=== PATIENT | female | born 1980 | race Caucasian/White ===

== ENCOUNTER 2018-03-31 18:06 | Emergency (ER) | payer OTHER ==
--- NOTE | 2018-03-31 18:09 | EDPHY ---
H & P Source: Patient Exam Limitations: No limitations - Personal History Tetanus Vaccine Date: 2008 - Medical/Surgical History Hx Asthma: No Hx Chronic Respiratory Disease: No Hx Diabetes: No Hx Cardiac Disease: No Hx Renal Disease: No Hx Cirrhosis: No Hx Alcoholism: No Hx HIV/AIDS: No Hx Splenectomy or Spleen Trauma: No Other PMH: Depression - Social History Smoking Status: Never smoked Time Seen by Provider: 03/31/18 18:08 HPI/ROS: CHIEF COMPLAINT: Fever, abdominal pain HISTORY OF PRESENT ILLNESS: The patient is referred to the emergency department for a CT scan. She has had 3 weeks of fever and migratory abdominal pain. The patient has had a total of 3 negative urine test but was placed on Bactrim for possible cystitis. Patient denies any recent travel outside the [place]. She denies any history of surgery or dental procedures. The patient takes no regular medications. The patient had an ultrasound performed of her abdomen earlier today which demonstrated no evidence of a tubo-ovarian abscess. They are unable to visualize the appendix. REVIEW OF SYSTEMS: A comprehensive 10 point review of systems is otherwise negative aside from elements mentioned in the history of present illness. (Albert Key) - Physical Exam Exam: General Appearance: Alert, no distress Eyes: Pupils equal and round no pallor or injection ENT, Mouth: Mucous membranes moist Respiratory: There are no retractions, lungs are clear to auscultation Cardiovascular: Regular rate and rhythm Gastrointestinal: Diffuse generalized abdominal tenderness, some rebound and guarding in the right lower quadrant and right upper quadrant Neurological: A&O, normal motor function, normal sensory exam, normal cranial nerves Skin: Warm and dry, no rashes Musculoskeletal: Neck is supple nontender Extremities: symmetrical, full range of motion (Albert Key) Constitutional: Initial Vital Signs Temperature (C) 38.1 C 03/31/18 18:08 Heart Rate 100 03/31/18 18:08 Respiratory Rate 17 03/31/18 18:08 Blood Pressure 124/64 H 03/31/18 18:08 O2 Sat (%) 97 03/31/18 18:08 O2 Delivery Mode Room Air Allergies/Adverse Reactions: No Known Allergies Allergy (Verified 03/31/18 18:07) Home Medications: Medication Instructions Recorded Bactrim DS 03/31/18 Medical Decision Making - Diagnostics Imaging Results: Imaging Impressions Pelvic/Renal Ultrasound 03/31/18 16:30 Impression: 1. No acute findings in the pelvis. 2. Benign 1.4 cm left paraovarian cyst. Findings discussed with Darrius Orellana, plant production worker for [employer] 03/31/2018 at 17 :47. Abdomen Ultrasound 03/31/18 17:00 Impression: Nonvisualization of the appendix with no secondary evidence of appendicitis. Findings discussed with Darrius Orellana, plant production worker for [employer] 03/31/2018 at 17 :47. Abdomen CT 03/31/18 19:11 Impression: 1. Minimal prominence of the tip of the appendix, indeterminate for acute appendicitis. 2. Moderate stool in the proximal colon. 3. 4.3 cm hepatic hemangioma. 4. Additional findings, as above. Findings discussed with Albert Key M.D., on March 31, 2018 at 2020. ED Course/Re-evaluation: I reviewed the patient's past medical records. She presents emergency department with several weeks of ongoing abdominal pain and fever. Patient's workup today his been unrevealing. She had a reassuring sed rate, multiple negative urine cultures and a unremarkable ultrasound. The patient was sent to the ED by her primary care provider for a CT scan to evaluate for possible subacute appendicitis. Additional laboratory testing was done in the emergency department including blood cultures x2. Patient's metabolic panel does demonstrate a slightly low sodium otherwise it is unremarkable. The patient's lipase continues to be normal. She does have leukopenia. I have added on an Ebstein Chase virus panel for evaluation of the patient's symptoms. The patient did undergo a CT scan of the abdomen pelvis for further evaluation. CT scan of the abdomen pelvis does demonstrate a mild dilation of the appendiceal tip to 9 mm with questionable mild periappendiceal stranding. No additional intra-abdominal pathology is noted. Reviewing the patient's lab she has developed a leukopenia. I re-evaluated the patient at 8:40 p.m.. She does have reproducible tenderness the right lower quadrant. Patient's workup is indeterminate at this point time for appendicitis. I have requested surgical consultation by Dr. Feliciano Jain to see if his recommendation is expected management verses admission for surgical intervention. The patient will be turned over to Dr. Adames pending Dr. Jain evaluation. Disposition per Dr. Jain. (Albert Key) 10:30 p.m.- The patient was seen by Dr. Jain who does not believe the patient truly as appendicitis. He would like her to be discharged home with follow up with her primary care doctor. Monospot was negative, remainder of the BV testing is pending at this time. I discussed this with the patient. I have answered all of her questions. She will be discharged home. (Hilaria Oliva) Differential Diagnosis: Differential diagnosis considered includes appendicitis, mesenteric adenitis, hepatitis, viral syndrome, bacteremia (Albert Key) - Data Points Laboratory Results: Laboratory Results 03/31/18 18:35 03/31/18 18:35 03/31/18 03/31/18 03/31/18 18:35 18:35 18:35 WBC RBC Hgb Hct MCV MCH MCHC RDW Plt Count MPV Neut % (Auto) Lymph % (Auto) [place] % (Auto) Eos % (Auto) Baso % (Auto) Nucleat RBC Rel Count Absolute Neuts (auto) Absolute Lymphs (auto) Absolute Monos (auto) Absolute Eos (auto) Absolute Basos (auto) Absolute Nucleated RBC Immature Gran % Immature Gran # RBC/WBC/PLT Morphology Platelet Estimate Sodium Potassium Chloride Carbon Dioxide Anion Gap BUN Creatinine Estimated GFR Glucose Calcium Total Bilirubin Conjugated Bilirubin Unconjugated Bilirubin AST ALT Alkaline Phosphatase Total Protein Albumin Lipase Beta HCG, Qual NEGATIVE EBV Capsid Ag IgG Ab Pending EBV Capsid Ag IgM Ab Pending EBV Nuclear Antigen Ab Pending EBV Interpretation Pending Monoscreen NEGATIVE (NEGATIVE) 03/31/18 03/31/18 18:35 18:35 WBC 2.97 10^3/uL L 10^3/uL (3.80-9.50) RBC 4.01 10^6/uL L 10^6/uL (4.18-5.33) Hgb 12.5 g/dL L g/dL (12.6-16.3) Hct 37.1 % L % (38.0-47.0) MCV 92.5 fL fL (81.5-99.8) MCH 31.2 pg pg (27.9-34.1) MCHC 33.7 g/dL g/dL (32.4-36.7) RDW 12.2 % % (11.5-15.2) Plt Count 177 10^3/uL 10^3/uL (150-400) MPV 9.6 fL fL (8.7-11.7) Neut % (Auto) 64.4 % % (39.3-74.2) Lymph % (Auto) 12.8 % L % (15.0-45.0) [place] % (Auto) 20.9 % H % (4.5-13.0) Eos % (Auto) 1.3 % % (0.6-7.6) Baso % (Auto) 0.3 % % (0.3-1.7) Nucleat RBC Rel Count 0.0 % % (0.0-0.2) Absolute Neuts (auto) 1.91 10^3/uL 10^3/uL (1.70-6.50) Absolute Lymphs (auto) 0.38 10^3/uL L 10^3/uL (1.00-3.00) Absolute Monos (auto) 0.62 10^3/uL 10^3/uL (0.30-0.80) Absolute Eos (auto) 0.04 10^3/uL 10^3/uL (0.03-0.40) Absolute Basos (auto) 0.01 10^3/uL L 10^3/uL (0.02-0.10) Absolute Nucleated RBC 0.00 10^3/uL 10^3/uL (0-0.01) Immature Gran % 0.3 % % (0.0-1.1) Immature Gran # 0.01 10^3/uL 10^3/uL (0.00-0.10) RBC/WBC/PLT Morphology TNP Platelet Estimate TNP Sodium 129 mEq/L L mEq/L (135-145) Potassium 4.0 mEq/L mEq/L (3.5-5.2) Chloride 101 mEq/L mEq/L (97-110) Carbon Dioxide 19 mEq/l L mEq/l (22-31) Anion Gap 9 mEq/L mEq/L (6-14) BUN 11 mg/dL mg/dL (7-23) Creatinine 0.9 mg/dL mg/dL (0.6-1.0) Estimated GFR > 60 Glucose 95 mg/dL mg/dL (70-100) Calcium 8.4 mg/dL L mg/dL (8.5-10.4) Total Bilirubin 0.3 mg/dL mg/dL (0.1-1.4) Conjugated Bilirubin 0.3 mg/dL mg/dL (0.0-0.5) Unconjugated Bilirubin 0.0 mg/dL mg/dL (0.0-1.1) AST 20 IU/L IU/L (14-46) ALT 22 IU/L IU/L (9-52) Alkaline Phosphatase 47 IU/L IU/L (38-126) Total Protein 6.3 g/dL g/dL (6.3-8.2) Albumin 3.8 g/dL g/dL (3.5-5.0) Lipase 114 IU/L IU/L (23-300) Beta HCG, Qual EBV Capsid Ag IgG Ab EBV Capsid Ag IgM Ab EBV Nuclear Antigen Ab EBV Interpretation Monoscreen Medications Given: Discontinued Medications Acetaminophen (Tylenol) 1,000 mg PO EDNOW ONE Stop: 03/31/18 18:53 Last Admin: 03/31/18 18:55 Dose: 1,000 mg Sodium Chloride (Ns) 1,000 mls @ 0 mls/hr IV EDNOW ONE; Wide Open PRN Reason: Protocol Stop: 03/31/18 18:33 Last Admin: 03/31/18 18:42 Dose: 1,000 mls Ibuprofen (Motrin) 600 mg PO EDNOW ONE Stop: 03/31/18 20:30 Last Admin: 03/31/18 20:30 Dose: 600 mg Departure - Departure Disposition: Home, Routine, Self-Care Clinical Impression: Abdominal pain Qualifiers: Abdominal location: right lower quadrant Qualified Code(s): R10.31 - Right lower quadrant pain Fever Qualifiers: Fever type: unspecified Qualified Code(s): R50.9 - Fever, unspecified Condition: Good Instructions: Acute Abdominal Pain (ED) Additional Instructions: 1. Please return to the ED for markedly worsening symptoms or other concerns. 2. Please follow-up with your primary care provider as scheduled. 3. Referrals: Gloria Hernández MD [Primary Care Provider] - As per Instructions
[2018-03-31] MEDS ORDERED: NS 1,000 ML IV ONE (18:32)
[2018-03-31] MEDS ORDERED: ACETAMINOPHEN 500 MG TAB PO ONE (18:52)
[2018-03-31 18:53] LABS: PLATELET COUNT 177 10^3/uL (150-400)
[2018-03-31] MEDS ORDERED: IOHEXOL 350mgI/ML (OMNIPAQUE) 150 ML BTL IV ONE (19:19)
[2018-03-31] MEDS ORDERED: IBUPROFEN 600 MG TAB PO ONE ×2 (20:28→20:29)
[2018-03-31 22:44] VITALS: BP 110/65
--- NOTE | 2018-04-01 10:20 | GCON ---
[f rep st] CONSULTATION DATE OF CONSULTATION: 03/31/2018 REASON FOR EVALUATION: Rule out appendicitis. REQUESTING PHYSICIAN: Albert Key MD HISTORY OF PRESENT ILLNESS: A 38-year-old healthy female with a 3 week prodrome of fevers and night sweats, most notable every morning, over the last 20 something days. No antecedent history of simila r complaints. No associated nausea or vomiting. Bowel movements have been without diarrhea. No voi ding complaints. Menstrual cycles have been normal for her. She has been taking regular Tylenol and Advil for symptomatic relief. No recent foreign travel. No other sick contacts. No rashes. She h as had mild abdominal discomfort. With 3 negative urine studies, she had been placed on Bactrim for a presumptive cystitis without relief of symptoms. She was sent to the emergency room for further wo rkup this evening. Imaging studies were performed showing a possible thickened distal appendiceal ti p with normal pelvic ultrasonography, as well as multiple abnormal laboratory values. Surgery has be en requested to rule out a possibility for appendicitis. PAST MEDICAL HISTORY: Shingles. PAST SURGICAL HISTORY: None. MEDICATIONS: Bactrim. ALLERGIES: No known drug allergies. SOCIAL HISTORY: No alcohol, no tobacco. She is . She runs a [employer]. FAMILY HISTORY: No lymphoma or other malignancy. REVIEW OF SYSTEMS: No photophobia. No neck pain. Notable arthralgias. PHYSICAL EXAM: VITAL SIGNS: T-max 38, blood pressure 124/64, pulse 100, respirations 17. GENERAL: The patient is alert, appropriate, comfortable. LYMPHATIC: Mildly tender 1 cm left cervical lymph node. No supraclavicular lymphadenopathy. HEART: Regular without murmurs. LUNGS: Clear bilateral ly. NECK: Nontender. ABDOMEN: Soft. Mild right lower quadrant tenderness without rebound. Mild Rovsing sign. Mild obturator sign. lymph nodes. Nonspecific subcentimeter bilateral axi llary lymph nodes. LABORATORY DATA: White count 3, hemoglobin 12, platelets of 177, lymphocytes 13%, monocytes 21%, nina trophils normal 64%. Sodium 129, potassium 4, chloride 101, CO2 21, BUN 11, creatinine 0.9, glucose of 95. Liver enzymes within reference range. test negative. Aliyah-Chase virus and Monos pot pending. IMAGING STUDIES: Including pelvic ultrasonography unremarkable other than a small left paraovarian c yst. Abdominal ultrasound with nonvisualization of her appendix. CT of the abdomen with possible pr ominence of the distal appendiceal tip abutting a cystic right ovary with moderate cecal feces and 4 cm hepatic hemangioma. These findings were directly reviewed with the on-call radiologist. IMPRESSION: Three week prodrome of fevers, night sweats, generalized abdominal pain, neutropenia, wi th elevated monocyte count and hyponatremia. Findings appear less suspicious for acute appendicitis, rather probable underlying viral illness or other infectious etiology. I do not recommend laparosco pic exploration at this time. If abdominal pain continues to worsen, would proceed with laparoscopy. The patient will plan to return to her primary care physician for further assessment this week with possible consideration for ID evaluation if no other answers found. /[id number]/MODL
== END 2018-03-31 22:43 | disposition home or self-care (01) ==
DX: R10.31 Right lower quadrant pain (principal); R50.9 Fever, unspecified
CPT/HCPCS: 86664-90; 86665-90; Q9967

== ENCOUNTER 2018-04-02 17:38 | Emergency (ER) | payer OTHER ==
[2018-04-02] MEDS ORDERED: IOHEXOL 350mgI/ML (OMNIPAQUE) 150 ML BTL IV ONE (18:00)
--- NOTE | 2018-04-02 18:00 | EDPHY ---
H & P Stated Complaint: elevated d dimer, cp/sob n "inflamed appy" and recent flu sym Time Seen by Provider: 04/02/18 17:42 - Personal History LMP (Females 10-55): 22-28 Days Ago Tetanus Vaccine Date: 2008 - Medical/Surgical History Hx Asthma: No Hx Chronic Respiratory Disease: No Hx Diabetes: No Hx Cardiac Disease: No Hx Renal Disease: No Hx Cirrhosis: No Hx Alcoholism: No Hx HIV/AIDS: No Hx Splenectomy or Spleen Trauma: No Other PMH: Depression - Social History Smoking Status: Never smoked Constitutional: Initial Vital Signs Temperature (C) 36.8 C 04/02/18 17:41 Heart Rate 85 04/02/18 17:41 Respiratory Rate 16 04/02/18 17:41 Blood Pressure 123/86 H 04/02/18 17:41 O2 Sat (%) 100 04/02/18 17:41 O2 Delivery Mode Room Air Allergies/Adverse Reactions: No Known Allergies Allergy (Verified 03/31/18 18:07) Home Medications: Medication Instructions Recorded NK [No Known Home Meds] 04/02/18 Medical Decision Making - Diagnostics Imaging Results: Imaging Impressions Chest/Thorax CTA 04/02/18 17:56 Impression: 1. No evidence of thrombopulmonary embolic disease. 2. Clear lungs. No pneumonia or effusion. Findings discussed with Emergency Department physician, Polo Wadsworth MD at 04/02/2018 18:28. ED Course/Re-evaluation: CHIEF COMPLAINT: Elevated D-dimer HISTORY OF PRESENT ILLNESS: 38-year-old healthy female sent in by Dr. Gloria Hernández for an elevated D-dimer. Dr. Hernández has been working up the patient whose had 3 weeks of intermittent fevers and chills and just not feeling well. At 1 point her blood counts dropped a bit according to Dr. Hernández. She was then developing some abdominal pain was here in the emergency department had a CT scan. There was some question of mild inflammation of the appendix. However once she was examined by Dr. Feliciano Jain she was not convinced this was appendicitis and she decided to go home. Additionally, Dr. Sb Cotter examined her today and he was also not convinced that she has appendicitis. The elevated D-dimer came back and Dr. Hernández sent her here to the hospital. REVIEW OF SYSTEMS: A comprehensive 10 system review of systems is otherwise negative aside from elements mentioned in the history of present illness and medical decision making. PHYSICAL EXAM: HR, BP, O2 Sat, RR. Temp noted General Appearance: Alert, well hydrated, appropriate, and non-toxic appearing. Head: Atraumatic without scalp tenderness or obvious injury Eyes: Pupils equal, round, reactive to light and accommodation, EOMI, no trauma , no injection. Ears: Clear bilaterally, no perforation, normal landmarks Nose: Atraumatic, no rhinorrhea, clear. Throat: There is no erythema or exudates, no lesions, normal tonsils, mucus membranes moist. Neck: Supple, 2+ carotid upstroke, nontender, no lymphadenopathy. Respiratory: No retractions, no distress, no wheezes, and no accessory muscle use. Lungs are clear to auscultation bilaterally. Cardiovascular: Regular rate and rhythm, no murmurs, rubs, or gallops. Bilateral carotid, radial, dorsalis pedis, and posterior tibial pulses intact. Good capillary refill all extremities. Gastrointestinal: Abdomen is soft, nontender, non-distended, no masses, no rebound, no guarding, no peritoneal signs. This patient has a completely benign abdominal exam. There is no evidence of appendicitis or any other surgical process. Musculoskeletal: Normal active ROM of all extremities, atraumatic. Neurological: Alert, appropriate, and interactive. The patient has normal DTRs and non-focal cranial nerves, motor, sensory, and cerebellar exam. Skin: No rashes, good turgor, no nodules on palpation. Past medical history: Patient denies Past surgical history: Patient denies Family history: Noncontributory Social history: , employed, does not abuse tobacco drugs or alcohol DIAGNOSTICS/PROCEDURES/CRITICAL CARE TIME: Study: CT angiography of the chest Indication: Rule out pulmonary embolus based on elevated D-dimer by the primary care physician Results: CT scan of the body parts was obtained. The results of the study are normal. The study was read by the radiologist, Dr. Lawrence Campos . I viewed the images myself on the PACS system. DIFFERENTIAL DIAGNOSIS: The differential diagnosis for the patient's shortness of breath included but was not limited to pneumonia, myocardial infarction, acute mountain sickness, high altitude pulmonary edema, congestive heart failure, and pulmonary embolus. MEDICAL DECISION MAKING: This patient is fairly asymptomatic. We are doing the angio chest really based on an elevated D-dimer. She has very low risk of pulmonary embolus. She is not tachypneic, she is not tachycardic, she is not hypoxemic, she has no pleuritic chest pain. She is really describing an intermittent cough. This patient has no evidence of any pulmonary findings including no evidence of a pulmonary embolus. This patient also has a completely benign abdomen and I do not believe she has appendicitis. I will discharge her to follow up with her primary care physician. Departure - Departure Disposition: Home, Routine, Self-Care Clinical Impression: Cough, Elevated d-dimer Condition: Good Instructions: Acute Cough (ED) Referrals: Gloria Hernández MD [Primary Care Provider] - As per Instructions
[2018-04-02 18:40] VITALS: BP 123/85
== END 2018-04-02 18:45 | disposition home or self-care (01) ==
DX: R79.1 Abnormal coagulation profile (principal); R05 Cough
CPT/HCPCS: Q9967